=== PATIENT | male | born 1940 | race African-American/Black ===

== ENCOUNTER → 2017-07-17 | Outpatient (CLI) | payer OTHER ==
[~2017-07-17] MED LIST: ACIDOPHILUS1 EAC3 PO; CIPRO500 MG PO; FLOMAX0.4 MG PO; IRON325 PO; MULTIVITAMINS1 EAC7 PO; NORCO 5-325 TA1 EACH PO; ONDANSETRON HCL4 M2 PO; SPIRIVA18 MCG INH; SYMBICORT160 MCG/4. INH; TYLENOL325 MG PO; VITAMINC500 PO; ZESTRIL40 MG PO
[2017-07-17 09:30] VITALS: BP 127/61
[2017-07-17 10:57] VITALS: BP 127/61
[2017-07-17 11:45] VITALS: BP 122/61; BP 133/60
== END ==
LOC: OPONC 06:31
DX: D64.9 Anemia, unspecified (principal)
CPT/HCPCS: 91030